=== PATIENT | male | born 1975 | race Two or more races ===

== ENCOUNTER 2021-04-06 02:59 | Emergency (ER) | payer OTHER ==
[~2021-04-06] VITALS: Ht 170.2 cm; Wt 77.1 kg
== END 2021-04-06 05:39 | disposition home or self-care (01) ==
LOC: ER 02:59
DX: T07.XXXA Unspecified multiple injuries, initial encounter (principal); V29.9XXA Motorcycle rider (driver) (passenger) injured in unspecified traffic accident, initial encounter; Y93.9 Activity, unspecified; Y92.413 State road as the place of occurrence of the external cause; Y99.9 Unspecified external cause status